=== PATIENT | male | born 1985 | race Caucasian/White ===

== ENCOUNTER 2022-08-15 09:48 | Inpatient (IN) | payer BC, OTHER ==
[~2022-08-15] VITALS: Ht 185.4 cm; Wt 63.5 kg
[2022-08-15] MEDS ORDERED: IBUP100T54 PO (10:08)
[2022-08-15] MEDS ORDERED: OMEP20CA15 PO (10:08)
[2022-08-15] MEDS ORDERED: IV NORMAL SALINE 1000 ML BAG IV ONE (10:30)
[2022-08-15] MEDS ORDERED: MORPHINE SULFATE 2 MG/1 ML DISP.SYRIN IV ONE (10:30)
[2022-08-15 10:39] LABS: HEMATOCRIT 36.3 % (36.7-47.1); MEAN CORPUSCULAR HEMOGLOBIN 27.4 uug (23.8-33.4); MEAN CORPUSCULAR VOLUME 84.4 fL (73.0-96.2); PLATELET COUNT (AUTO) 576 K/uL (152-348)
[2022-08-15] MEDS ORDERED: MORPHINE SULFATE 4 MG/1 ML DISP.SYRIN ONE (10:39)
[2022-08-15 10:47] LABS: CARBON DIOXIDE 29 mmol/L (21-32); CHLORIDE 104 mmol/L (98-107); CREATININE 0.7 mg/dL (0.6-1.3); GLUCOSE 99 mg/dL (74-106); POTASSIUM 4.3 mmol/L (3.5-5.1); UREA NITROGEN, BLOOD 7 mg/dL (7-18)
[2022-08-15 10:52] LABS: ALANINE AMINOTRANSFERASE 19 U/L (16-63); ALKALINE PHOSPHATASE 76 U/L (50-136); ASPARTATE AMINOTRANSFERASE 12 U/L (15-37); BILIRUBIN,DIRECT < 0.1 mg/dL (0.0-0.2); BILIRUBIN,TOTAL 0.1 mg/dL (0.2-1.0); LIPASE 48 U/L (73-393); TOTAL PROTEIN, SERUM 6.1 g/dL (6.4-8.2)
[2022-08-15] MEDS ORDERED: SWABABLE VALVE TRANSFER SET EA MC ONE (10:57)
[2022-08-15] MEDS ORDERED: IOHEXOL 300MG/ML 100 ML INFUS..BTL ONE (10:57)
[2022-08-15] MEDS ORDERED: IV NORMAL SALINE 250 ML IV ONE (10:58)
--- NOTE | 2022-08-15 11:00 | NUR ---
Pt seen by MD for bedside Eval. Safety measures in place. Will continue to monitor.
[2022-08-15] MEDS ORDERED: HYDROMORPHONE 1 MG/1 ML DISP.SYRIN IV ONE ×2 (11:45→13:00)
[2022-08-15 12:01] LABS: *BILIRUBIN,URIN NEGATIVE (NEGATIVE); *BLOOD, URINE NEGATIVE (NEGATIVE); *CLARITY,URINE CLEAR (CLEAR); *COLOR,URINE YELLOW (YELLOW); *KETONES,URINE NEGATIVE (NEGATIVE); *UROBILINOGEN,URINE 0.2 E.U./dl (NORMAL); LEUKOCYTE ESTERASE ,URINE NEGATIVE (NEGATIVE); NITRITE, URINE NEGATIVE (NEGATIVE); PH,URINE 6.5 (5.0-8.0); UGLUCOSE NEGATIVE (NEGATIVE)
--- NOTE | 2022-08-15 12:11 | NUR ---
Pt in stable condition. US tech is on his way according to radiology as he is on-call. Safety measures in place. Will continue to monitor.
[2022-08-15] MEDS ORDERED: PIPERACILLIN/TAZOBACTAM/D5W 50 ML IV ONE (13:09)
[2022-08-15] MEDS ORDERED: PIPERACILLIN SODIUM/TAZOBACTAM 3.375 G in IV DEXTROSE 5% 50 ML IV ONE (13:15)
--- NOTE | 2022-08-15 13:34 | NUR ---
Sent COVID to lab. Was informed by Mike that pt will be sent to 315 taken by Kay (CINDA).
[2022-08-15] MEDS ORDERED: ONDANSETRON 4 MG/2 ML VIAL IV PRN (14:00)
[2022-08-15] MEDS ORDERED: METRONIDAZOLE 500 MG/NS 100ML 500 MG in PREMIXED 1 EACH IV SCH (14:00)
[2022-08-15] MEDS ORDERED: ENOXAPARIN SODIUM 40 MG/0.4 ML DISP.SYRIN SQ SCH ×2 (14:00→14:40)
[2022-08-15] MEDS ORDERED: ACETAMINOPHEN 325 MG TABLET PO PRN (14:00)
[2022-08-15] MEDS ORDERED: REMEDY ESSENTIAL ZINC PASTE 113 GM TP PRN (14:00)
[2022-08-15] MEDS ORDERED: levoFLOXacin 500 MG/D5W 500 MG in PREMIXED 1 EACH IV SCH (14:00)
[2022-08-15] MEDS ORDERED: DICYCLOMINE HCL 20 MG TABLET ONE (14:05)
[2022-08-15] MEDS: DICYCLOMINE HCL 10 MG CAPSULE PO SCH ×2 (14:12→17:07)
--- NOTE | 2022-08-15 14:13 | NUR ---
Gave Pt Bentyl 10mg PO. Retrieved 20mg tablet from [facility] and cut pill in half using pillcutter.
--- NOTE | 2022-08-15 14:13 | NUR ---
Gave report to Kay (CONTRACT ADMINISTRATION MANAGER).
--- NOTE | 2022-08-15 14:29 | NUR ---
Pt transferred to 315 in stable condition. Pt arrived to wheelchair safely. Informed Kay about Pt's HIDA scan. All belongings are with patient.
--- NOTE | 2022-08-15 14:48 | NUR ---
36 YEAR OLD MALE RECEIVED TO ROOM 315 FOR AP ,PT IS AXOX4 ,CALL LIGHT WITH IN MD YESICA NOTIFIED FOR THE ADMISSION
[2022-08-15] MEDS: IV D5 1/2 NS 1000 ML 1,000 ML IV PRN (15:02)
[2022-08-15 15:30] VITALS: BP 115/73
[2022-08-15] MEDS ORDERED: OMEP40CA21 PO (17:19)
[2022-08-15] MEDS ORDERED: IBUP-76 PO (17:19)
[2022-08-15] MEDS: PIPERACILLIN SODIUM/TAZOBACTAM 3.375 G in IV DEXTROSE 5% 100 ML IV SCH (18:00)
[2022-08-15 20:27] VITALS: BP 98/63
[2022-08-15] MEDS: HYDROMORPHONE 1 MG/1 ML DISP.SYRIN IV PRN (21:49)
[2022-08-15] MEDS ORDERED: PIPERACILLIN SODIUM/TAZOBACTAM 3.375 G in IV DEXTROSE 5% 50 ML IV SCH (22:00)
--- NOTE | 2022-08-16 | NUR ---
PATIENT NPO ORDERED FOR HIDA SCAN.
[2022-08-16] MEDS: DICYCLOMINE HCL 10 MG CAPSULE PO SCH ×5 (00:10→17:01)
[2022-08-16] MEDS: PIPERACILLIN SODIUM/TAZOBACTAM 3.375 G in IV DEXTROSE 5% 100 ML IV SCH ×3 (03:02→18:05)
[2022-08-16 04:27] VITALS: BP 107/59
--- NOTE | 2022-08-16 04:40 | NUR ---
PATIENT PICKED UP FOR NUCLEAR SCAN.
--- NOTE | 2022-08-16 05:47 | NUR ---
PATIENT OFF THE FLOOR AT THIS TIME FOR HIDA SCAN.
[2022-08-16] MEDS: PANTOPRAZOLE SODIUM 40 MG VIAL IV SCH (08:11)
[2022-08-16 09:15] LABS: MEAN CORPUSCULAR HEMOGLOBIN 27.1 uug (23.8-33.4); MEAN CORPUSCULAR VOLUME 84.7 fL (73.0-96.2); PLATELET COUNT (AUTO) 538 K/uL (152-348)
[2022-08-16 09:49] LABS: THYROID STIMULATING HORMONE 4.592 mIU/mL (0.358-3.740)
[2022-08-16 10:01] LABS: CREATININE 0.8 mg/dL (0.6-1.3); MAGNESIUM 1.8 mg/dL (1.8-2.4); PHOSPHOROUS 4.5 mg/dL (2.5-4.9); POTASSIUM 4.1 mmol/L (3.5-5.1)
[2022-08-16 11:39] VITALS: BP 109/65
[2022-08-16] MEDS: MAGNESIUM SULFATE/D5W 100 ML IV SCH ×3 (12:45→14:42)
[2022-08-16 12:46] LABS: FERRITIN 17 ng/mL (26-388)
[2022-08-16 13:12] LABS: IRON, SERUM 17 ug/dL (50-175)
[2022-08-16] MEDS: LIPASE/PROTEASE/AMYLASE 4200 UNITS CAPSULE.DR PO SCH ×2 (13:30→16:18)
[2022-08-16 15:26] VITALS: BP 107/70
[2022-08-16] MEDS: HYOSCYAMINE SULFATE 0.125 MG TABLET PO SCH (15:51)
[2022-08-16] MEDS: IV D5 1/2 NS 1000 ML 1,000 ML IV PRN (17:02)
[2022-08-16] MEDS: ENOXAPARIN SODIUM 60 MG/0.6 ML DISP.SYRIN SQ SCH (17:04)
[2022-08-16 20:04] VITALS: BP 100/60
[2022-08-16] MEDS: HYDROMORPHONE 1 MG/1 ML DISP.SYRIN IV PRN (22:27)
[2022-08-17] MEDS: DICYCLOMINE HCL 10 MG CAPSULE PO SCH ×5 (00:03→23:02)
[2022-08-17] MEDS: PIPERACILLIN SODIUM/TAZOBACTAM 3.375 G in IV DEXTROSE 5% 100 ML IV SCH ×3 (02:56→22:17)
[2022-08-17 04:15] VITALS: BP 95/63
[2022-08-17] MEDS: ENOXAPARIN SODIUM 60 MG/0.6 ML DISP.SYRIN SQ SCH (05:40)
[2022-08-17] MEDS: HYDROMORPHONE 1 MG/1 ML DISP.SYRIN IV PRN ×3 (05:51→21:09)
[2022-08-17 06:37] LABS: HEMATOCRIT 33.2 % (36.7-47.1); MEAN CORPUSCULAR HEMOGLOBIN 26.9 uug (23.8-33.4); MEAN CORPUSCULAR VOLUME 84.4 fL (73.0-96.2); PLATELET COUNT (AUTO) 500 K/uL (152-348)
[2022-08-17 06:38] LABS: CREATININE 0.7 mg/dL (0.6-1.3); MAGNESIUM 2.1 mg/dL (1.8-2.4); PHOSPHOROUS 4.9 mg/dL (2.5-4.9); POTASSIUM 3.9 mmol/L (3.5-5.1)
[2022-08-17] MEDS: HYOSCYAMINE SULFATE 0.125 MG TABLET PO SCH ×3 (07:48→15:59)
[2022-08-17] MEDS: LIPASE/PROTEASE/AMYLASE 4200 UNITS CAPSULE.DR PO SCH ×3 (08:03→16:35)
[2022-08-17] MEDS: PANTOPRAZOLE SODIUM 40 MG VIAL IV SCH (08:14)
[2022-08-17 10:06] LABS: *IMMUNOGLOBULIN G, SERUM 830 mg/dL (603-1613); IMMUNOGLOBULIN M, SERUM 22 mg/dL (20-172)
[2022-08-17 11:02] VITALS: BP 100/70
[2022-08-17] MEDS ORDERED: PIPERACILLIN SODIUM/TAZOBACTAM 3.375 G in IV DEXTROSE 5% 50 ML IV SCH (14:00)
[2022-08-17 15:20] VITALS: BP 98/58
[2022-08-17] MEDS ORDERED: SOD FERRIC GLUC COMPLX/SUCROSE 125 MG in IV NORMAL SALINE 100 ML IV SCH (16:00)
[2022-08-17 20:43] VITALS: BP 90/60
[2022-08-17] MEDS ORDERED: ENOXAPARIN SODIUM 60 MG/0.6 ML DISP.SYRIN SQ SCH (21:00)
--- NOTE | 2022-08-18 01:53 | NUR ---
Sleeping, appears comfortable no c/o pain noted
[2022-08-18 04:00] VITALS: BP 98/62
[2022-08-18] MEDS: DICYCLOMINE HCL 10 MG CAPSULE PO SCH (05:01)
--- NOTE | 2022-08-18 05:32 | NUR ---
pt have pet scan as out pt in [facility] ,pt said he can not reschedule the appointment ,talk to the md and housing case manager all the contraindication discuss with the pt if he leave [facility] ,pt said he needs to do the pet scan ,pt left the hospital in proper clothing with his family ,pt is axox4 bhargavi araiza md and charge nurse and nursing circus train supervisor notified
[2022-08-18] MEDS ORDERED: PROTEIN SUPPLEMENT (PROSTAT) 30 ML LIQUID PO SCH (08:00)
[2022-08-18 09:07] LABS: A/G RATIO 0.8 (0.7-1.7); ALBUMIN 2.2 g/dL (2.9-4.4); ALPHA-1-GLOBULIN 0.4 g/dL (0.0-0.4); ALPHA-2-GLOBULIN 0.7 g/dL (0.4-1.0); GAMMA GLOBULIN 0.6 g/dL (0.4-1.8); GLOBULIN, TOTAL 2.7 g/dL (2.2-3.9); M-SPIKE Not Observed g/dL (Not Observed)
[2022-08-19] MEDS ORDERED: DICY20TA2 PO (11:41)
[2022-08-19] MEDS ORDERED: APIX5TAB4 PO (11:41)
[2022-08-19] MEDS ORDERED: APIX5TAB PO (11:41)
== END 2022-08-18 05:37 | disposition left against medical advice (07) | DRG 372 ==
LOC: ER 10:00 → MEDSURG3 14:10
PROVIDERS: ADMIT Nurse Practitioner Family; ATTEND Nurse Practitioner Family
DX: A04.9 Bacterial intestinal infection, unspecified (principal); C16.9 Malignant neoplasm of stomach, unspecified; E44.0 Moderate protein-calorie malnutrition; Z68.1 Body mass index [BMI] 19.9 or less, adult; I82.622 Acute embolism and thrombosis of deep veins of left upper extremity; C77.9 Secondary and unspecified malignant neoplasm of lymph node, unspecified; R18.8 Other ascites; J90 Pleural effusion, not elsewhere classified; J98.11 Atelectasis; Z90.3 Acquired absence of stomach [part of]; D75.839 Thrombocytosis, unspecified; E03.8 Other specified hypothyroidism; Z53.29 Procedure and treatment not carried out because of patient's decision for other reasons; E88.09 Other disorders of plasma-protein metabolism, not elsewhere classified; D50.9 Iron deficiency anemia, unspecified; E27.9 Disorder of adrenal gland, unspecified; Z92.21 Personal history of antineoplastic chemotherapy; Z85.028 Personal history of other malignant neoplasm of stomach; Z20.822 Contact with and (suspected) exposure to COVID-19
CPT/HCPCS: 36415; 71250; 78445; 82378; 82746; 82784; 83550; 83690; 83735; 84100; 84155; 84165; 84443; 85025; 86334; 87040; A4663; A9537; C9113; G0378; J1170; J1650; J2270; J2405; J2543; J2916; J3475; J7040; Q9967

== ENCOUNTER 2022-08-18 22:40 | Inpatient (IN) | payer BC ==
[~2022-08-18] VITALS: Ht 185.4 cm; Wt 65.0 kg
[~2022-08-18 22:40] MED LIST: IBUP-76 PO; OMEP40CA21 PO
--- NOTE | 2022-08-18 23:00 | NUR ---
Patient walked into ER c/o abdominal pain and poor appetite due to stomach CA.
--- NOTE | 2022-08-18 23:05 | NUR ---
Dr. Lizama at bedside for MSE.
[2022-08-18 23:34] LABS: HEMATOCRIT 36.2 % (36.7-47.1); MEAN CORPUSCULAR HEMOGLOBIN 27.3 uug (23.8-33.4); MEAN CORPUSCULAR VOLUME 84.2 fL (73.0-96.2); PLATELET COUNT (AUTO) 557 K/uL (152-348)
[2022-08-18 23:48] LABS: BILIRUBIN,DIRECT 0.1 mg/dL (0.0-0.2); BILIRUBIN,TOTAL 0.2 mg/dL (0.2-1.0); CREATININE 0.7 mg/dL (0.6-1.3); POTASSIUM 4.4 mmol/L (3.5-5.1); TOTAL PROTEIN, SERUM 6.2 g/dL (6.4-8.2)
--- NOTE | 2022-08-19 00:03 | NUR ---
Epic panel call placed, spoke to Christina stated she will get a hold of MICROSTRATEGY DEVELOPER Araseli Friend for admitting.
[2022-08-19] MEDS ORDERED: KETOROLAC TROMETHAMINE 15 MG INJ ONE (00:06)
--- NOTE | 2022-08-19 00:08 | NUR ---
Dr. Lizama on panel call with Bridgette Trevizo. Patient accepted for admission to [facility] unit, Dx DVT.
[2022-08-19] MEDS ORDERED: KETOROLAC TROMETHAMINE 15 MG INJ IVP ONE ×2 (00:15→02:45)
[2022-08-19] MEDS ORDERED: IV NS 1000 ML 1,000 ML IV PRN (00:30)
[2022-08-19] MEDS ORDERED: REMEDY ESSENTIAL ZINC PASTE 113 GM TP PRN (00:30)
[2022-08-19] MEDS ORDERED: ACETAMINOPHEN 325 MG TABLET PO PRN (00:30)
[2022-08-19] MEDS ORDERED: ONDANSETRON 4 MG/2 ML VIAL IV PRN (00:30)
[2022-08-19] MEDS ORDERED: MAGNESIUM HYDROXIDE 30 ML LIQUID UDC PO PRN (00:30)
--- NOTE | 2022-08-19 01:45 | NUR ---
Pt. admitted to [facility] unit Room 318, under care of Araseli Trevizo. Report given to PARISA Nguyen. Belongings List completed.
[2022-08-19 02:00] VITALS: BP 126/69
[2022-08-19] MEDS ORDERED: ENOXAPARIN SODIUM 60 MG/0.6 ML DISP.SYRIN SQ SCH (02:00)
[2022-08-19 04:00] VITALS: BP 101/54
[2022-08-19] MEDS ORDERED: PANTOPRAZOLE SODIUM 40 MG TABLET.DR PO SCH (07:00)
--- NOTE | 2022-08-19 07:30 | NUR ---
REPORT GIVEN TO PARISA CASEY
[2022-08-19 08:00] VITALS: BP 101/63
[2022-08-19] MEDS ORDERED: Medication Not On Formulary EA (Omeprazole 40 MG) PO SCH (09:00)
--- NOTE | 2022-08-19 10:00 | NUR ---
Received patient lying in bed awake, alert and oriented, with ongoing IVF NS 1L @ 90cc/hr infusing well at right AC g. 20 intact. Not in distress no complaint, vital signs stable. Medications given and recorded Seen and examined by Dr. Torres with order for discharge and carried out Prepared discharge, given and instructed to patient. signed all forms for discharge. Answered all questions, verbalize understanding Removed IV catheter clean and intact Needs attended
[2022-08-19] MEDS ORDERED: ENOXAPARIN SODIUM 80 MG/0.8 ML DISP.SYRIN SQ SCH (11:00)
[2022-08-19] MEDS ORDERED: DICY20TA2 PO (11:41)
[2022-08-19] MEDS ORDERED: APIX5TAB PO (11:41)
[2022-08-19] MEDS ORDERED: APIX5TAB4 PO (11:41)
[2022-08-19 11:53] VITALS: BP 113/72
[2022-08-19] MEDS ORDERED: LIPASE/PROTEASE/AMYLASE 4200 UNITS CAPSULE.DR PO SCH (12:00)
[2022-08-19] MEDS ORDERED: DICYCLOMINE HCL 20 MG TABLET PO SCH (13:00)
--- NOTE | 2022-08-19 15:10 | NUR ---
Assisted patient for discharge ambulatory. Stable at the time of discharge properly Discharge at 1510
== END 2022-08-19 15:10 | disposition home or self-care (01) | DRG 300 ==
LOC: ER 22:43 → MEDSURG3 08-19 00:10
PROVIDERS: ADMIT Nurse Practitioner Acute Care; ATTEND Internal Medicine
DX: I82.622 Acute embolism and thrombosis of deep veins of left upper extremity (principal); C77.1 Secondary and unspecified malignant neoplasm of intrathoracic lymph nodes; Z85.028 Personal history of other malignant neoplasm of stomach; Z90.3 Acquired absence of stomach [part of]; R10.11 Right upper quadrant pain
CPT/HCPCS: 36415; 85025; 85610; 85730; A4663; G0378; J1650; J1885; J7040

== ENCOUNTER 2022-10-18 14:47 | Inpatient (IN) | payer BC, MEDICAID ==
[~2022-10-18] VITALS: Ht 185.4 cm; Wt 61.7 kg
[~2022-10-18 14:47] MED LIST changes: +APIX5TAB PO; +APIX5TAB4 PO; +DICY20TA2 PO; -IBUP-76 PO
[2022-10-18 16:26] LABS: BASOPHILS % (AUTO) 0.4 % (0.0-2.0); EOSINOPHILS % (AUTO) 0.1 % (0.0-7.0); HEMATOCRIT 38.8 % (36.7-47.1); HEMOGLOBIN 12.1 g/dL (12.5-16.3); LYMPHOCYTES % (AUTO) 17.1 % (20.5-51.5); MEAN CORPUSCULAR HEMOGLOBIN 24.3 uug (23.8-33.4); MEAN CORPUSCULAR HGB CONC 31 g/dL (32.5-36.3); MONOCYTES # (AUTO) 0.4 K/uL (0.1-1.30); MONOCYTES % (AUTO) 6.4 % (0.0-11.0); NEUTROPHILS # (AUTO) 4.6 K/uL (1.8-8.9); PLATELET COUNT (AUTO) 660 K/uL (152-348); RED BLOOD CELL COUNT(AUTO) 4.98 MIL/uL (4.06-5.63); RED CELL DISTRIBUTION WIDTH 18.9 % (12.1-16.2)
[2022-10-18 16:37] LABS: DIFFERENTIAL COMMENT 1
[2022-10-18 16:39] LABS: CALCIUM 7.9 mg/dL (8.5-10.1); CARBON DIOXIDE 27 mmol/L (21-32); CHLORIDE 100 mmol/L (98-107); GLUCOSE 98 mg/dL (74-106); SODIUM SERUM 133 mmol/L (136-145); UREA NITROGEN, BLOOD 13 mg/dL (7-18)
[2022-10-18] MEDS ORDERED: IV NORMAL SALINE 250 ML IV ONE (16:52)
[2022-10-18] MEDS ORDERED: IOHEXOL 350 100 ML INFUS..BTL ONE (16:52)
[2022-10-18] MEDS ORDERED: SWABABLE VALVE TRANSFER SET EA MC ONE (16:52)
[2022-10-18 16:53] LABS: ALANINE AMINOTRANSFERASE 9 U/L (16-63); ALBUMIN 1.8 g/dL (3.4-5.0); ALKALINE PHOSPHATASE 76 U/L (50-136); ASPARTATE AMINOTRANSFERASE 15 U/L (15-37); BILIRUBIN,DIRECT < 0.1 mg/dL (0.0-0.2); BILIRUBIN,TOTAL 0.1 mg/dL (0.2-1.0); NT-PRO BNP 54 pg/mL (0-125)
[2022-10-18] MEDS ORDERED: IV NS 1000 ML 1,000 ML IV ONE (17:45)
[2022-10-18] MEDS ORDERED: ACETAMINOPHEN 325 MG TABLET PO PRN (21:00)
[2022-10-18] MEDS ORDERED: ALBUTEROL SULFATE 2.5 MG/3 ML NEBU NEB PRN (21:00)
[2022-10-18] MEDS ORDERED: HYDROCODONE/APAP 5-325MG TABLET PO PRN (21:00)
[2022-10-18] MEDS ORDERED: REMEDY ESSENTIAL ZINC PASTE 113 GM TP PRN (21:00)
[2022-10-18] MEDS ORDERED: ONDANSETRON 4 MG/2 ML VIAL IV PRN (21:00)
[2022-10-18] MEDS ORDERED: IPRATROPIUM BROMIDE 0.5 MG/2.5 ML NEBU NEB PRN (21:00)
[2022-10-18] MEDS: MORPHINE SULFATE 2 MG/1 ML DISP.SYRIN IV PRN (21:53)
[2022-10-18 22:04] VITALS: BP 105/79; TEMP 97.6; O2SAT 97
[2022-10-19] VITALS: BP 108/81; TEMP 97.7; O2SAT 97
[2022-10-19 04:00] VITALS: BP 104/7; TEMP 97.6; O2SAT 100
[2022-10-19] MEDS: PANTOPRAZOLE SODIUM 40 MG TABLET.DR PO SCH (06:00)
[2022-10-19 07:32] LABS: BASOPHILS % (AUTO) 0.4 % (0.0-2.0); EOSINOPHILS % (AUTO) 0.3 % (0.0-7.0); HEMATOCRIT 33.1 % (36.7-47.1); HEMOGLOBIN 10.6 g/dL (12.5-16.3); LYMPHOCYTES # (AUTO) 1.2 K/uL (0.8-4.8); MEAN CORPUSCULAR HEMOGLOBIN 24.8 uug (23.8-33.4); MEAN CORPUSCULAR HGB CONC 32 g/dL (32.5-36.3); MEAN CORPUSCULAR VOLUME 77.5 fL (73.0-96.2); MONOCYTES # (AUTO) 0.4 K/uL (0.1-1.30); NEUTROPHILS # (AUTO) 3.8 K/uL (1.8-8.9); NEUTROPHILS % (AUTO) 70.3 % (38.5-71.5); PLATELET COUNT (AUTO) 542 K/uL (152-348); RED BLOOD CELL COUNT(AUTO) 4.27 MIL/uL (4.06-5.63); RED CELL DISTRIBUTION WIDTH 18.5 % (12.1-16.2); WHITE BLOOD COUNT (AUTO) 5.4 K/uL (3.6-10.2)
[2022-10-19 07:42] LABS: *BILIRUBIN,URIN NEGATIVE (NEGATIVE); *BLOOD, URINE NEGATIVE (NEGATIVE); *CLARITY,URINE CLEAR (CLEAR); *COLOR,URINE YELLOW (YELLOW); *KETONES,URINE NEGATIVE (NEGATIVE); *PROTEIN,URINE NEGATIVE (NEGATIVE); *UROBILINOGEN,URINE 0.2 E.U./dl (NORMAL); LEUKOCYTE ESTERASE ,URINE NEGATIVE (NEGATIVE); NITRITE, URINE NEGATIVE (NEGATIVE); UGLUCOSE NEGATIVE (NEGATIVE)
[2022-10-19 07:47] LABS: CALCIUM 7.6 mg/dL (8.5-10.1); CREATININE 0.7 mg/dL (0.6-1.3); PHOSPHOROUS 3.8 mg/dL (2.5-4.9); POTASSIUM 4.6 mmol/L (3.5-5.1)
[2022-10-19 07:49] LABS: DIFFERENTIAL COMMENT 1
[2022-10-19 11:30] VITALS: BP 109/75; TEMP 97.5; O2SAT 97
[2022-10-19] MEDS: HYDROCODONE/APAP 10-325 MG TABLET PO PRN ×2 (12:40→19:26)
[2022-10-19 16:30] VITALS: BP 109/79; TEMP 97.4; O2SAT 97
[2022-10-19 20:00] VITALS: BP 106/72; TEMP 97.5; O2SAT 94
[2022-10-20] VITALS: BP 113/83; TEMP 97.6
[2022-10-20] MEDS: MORPHINE SULFATE 2 MG/1 ML DISP.SYRIN IV PRN ×4 (00:28→19:04)
[2022-10-20] MEDS: HYDROCODONE/APAP 10-325 MG TABLET PO PRN (04:45)
[2022-10-20 05:00] VITALS: BP 118/65; TEMP 97.5; O2SAT 95
[2022-10-20] MEDS: PANTOPRAZOLE SODIUM 40 MG TABLET.DR PO SCH (06:17)
[2022-10-20 07:38] LABS: BASOPHILS % (AUTO) 0.5 % (0.0-2.0); EOSINOPHILS % (AUTO) 0.7 % (0.0-7.0); HEMATOCRIT 35.5 % (36.7-47.1); HEMOGLOBIN 11.4 g/dL (12.5-16.3); LYMPHOCYTES # (AUTO) 1.4 K/uL (0.8-4.8); LYMPHOCYTES % (AUTO) 27.1 % (20.5-51.5); MEAN CORPUSCULAR HEMOGLOBIN 24.9 uug (23.8-33.4); MEAN CORPUSCULAR HGB CONC 32 g/dL (32.5-36.3); MEAN CORPUSCULAR VOLUME 77.8 fL (73.0-96.2); MONOCYTES # (AUTO) 0.4 K/uL (0.1-1.30); MONOCYTES % (AUTO) 8.2 % (0.0-11.0); NEUTROPHILS # (AUTO) 3.3 K/uL (1.8-8.9); NEUTROPHILS % (AUTO) 63.5 % (38.5-71.5); PLATELET COUNT (AUTO) 592 K/uL (152-348); RED BLOOD CELL COUNT(AUTO) 4.56 MIL/uL (4.06-5.63); RED CELL DISTRIBUTION WIDTH 18.6 % (12.1-16.2); WHITE BLOOD COUNT (AUTO) 5.2 K/uL (3.6-10.2)
[2022-10-20 07:42] LABS: DIFFERENTIAL COMMENT 1
[2022-10-20 07:54] LABS: IRON, SERUM 15 ug/dL (50-175)
[2022-10-20 08:18] LABS: ALANINE AMINOTRANSFERASE < 6 U/L (16-63); ALBUMIN 1.6 g/dL (3.4-5.0); ALKALINE PHOSPHATASE 73 U/L (50-136); ASPARTATE AMINOTRANSFERASE 15 U/L (15-37); BILIRUBIN,TOTAL 0.1 mg/dL (0.2-1.0); CALCIUM 7.9 mg/dL (8.5-10.1); CARBON DIOXIDE 27 mmol/L (21-32); CHLORIDE 101 mmol/L (98-107); CREATININE 0.8 mg/dL (0.6-1.3); GLUCOSE 81 mg/dL (74-106); MAGNESIUM 2.1 mg/dL (1.8-2.4); PHOSPHOROUS 4.5 mg/dL (2.5-4.9); POTASSIUM 5.1 mmol/L (3.5-5.1); SODIUM SERUM 134 mmol/L (136-145); TOTAL PROTEIN, SERUM 5.9 g/dL (6.4-8.2); UREA NITROGEN, BLOOD 10 mg/dL (7-18)
[2022-10-20] MEDS: CEFTRIAXONE 1 G in IV DEXTROSE 5% 50 ML IV SCH (09:23)
[2022-10-20 11:32] VITALS: BP 113/80; TEMP 97.6; O2SAT 95
[2022-10-20] MEDS: AZITHROMYCIN IV 500 MG in IV DEXTROSE 5% 250 ML IV SCH (12:49)
[2022-10-20] MEDS ORDERED: METOCLOPRAMIDE HCL 10 MG/2 ML VIAL IV PRN (13:45)
[2022-10-20 16:12] VITALS: BP 100/68; TEMP 97.6; O2SAT 94
[2022-10-20] MEDS: GLUCERNA SHAKE 237 ML CAN PO SCH (17:00)
[2022-10-20] MEDS: ONDANSETRON 4 MG/2 ML VIAL IV PRN (19:05)
[2022-10-20 20:00] VITALS: BP 104/71; TEMP 98.6; O2SAT 97
[2022-10-21 04:00] VITALS: BP 102/69; TEMP 98; O2SAT 97
[2022-10-21] MEDS: PANTOPRAZOLE SODIUM 40 MG TABLET.DR PO SCH (06:03)
[2022-10-21] MEDS: CEFTRIAXONE 1 G in IV DEXTROSE 5% 50 ML IV SCH (08:35)
[2022-10-21] MEDS: GLUCERNA SHAKE 237 ML CAN PO SCH ×2 (08:36→17:00)
[2022-10-21] MEDS: PROTEIN SUPPLEMENT (PROSTAT) 30 ML LIQUID PO SCH (08:36)
[2022-10-21] MEDS: AZITHROMYCIN IV 500 MG in IV DEXTROSE 5% 250 ML IV SCH (09:57)
[2022-10-21] MEDS: ONDANSETRON 4 MG/2 ML VIAL IV PRN (10:03)
[2022-10-21 11:54] VITALS: BP 105/70; TEMP 97.8; O2SAT 96
[2022-10-21] MEDS: HYDROCODONE/APAP 10-325 MG TABLET PO PRN ×2 (15:54→21:27)
[2022-10-21] MEDS: FERROUS SULFATE 325 MG TABEC PO SCH (16:05)
[2022-10-21 16:08] VITALS: BP 109/73; TEMP 97.8; O2SAT 95
[2022-10-21 20:00] VITALS: BP 111/76; TEMP 98; O2SAT 95
[2022-10-22] MEDS: MORPHINE SULFATE 2 MG/1 ML DISP.SYRIN IV PRN (00:45)
[2022-10-22] MEDS: ONDANSETRON 4 MG/2 ML VIAL IV PRN ×3 (00:45→20:21)
[2022-10-22] MEDS: HYDROCODONE/APAP 10-325 MG TABLET PO PRN ×2 (03:11→19:41)
[2022-10-22] MEDS: MAGNESIUM HYDROXIDE 30 ML LIQUID UDC PO PRN (03:15)
[2022-10-22] MEDS: PANTOPRAZOLE SODIUM 40 MG TABLET.DR PO SCH (06:05)
[2022-10-22 06:26] LABS: BASOPHILS % (AUTO) 0.4 % (0.0-2.0); EOSINOPHILS % (AUTO) 0.6 % (0.0-7.0); HEMATOCRIT 34.5 % (36.7-47.1); LYMPHOCYTES # (AUTO) 1.4 K/uL (0.8-4.8); LYMPHOCYTES % (AUTO) 25.6 % (20.5-51.5); MEAN CORPUSCULAR HEMOGLOBIN 24.8 uug (23.8-33.4); MEAN CORPUSCULAR HGB CONC 32 g/dL (32.5-36.3); MEAN CORPUSCULAR VOLUME 77.4 fL (73.0-96.2); MONOCYTES # (AUTO) 0.6 K/uL (0.1-1.30); MONOCYTES % (AUTO) 10.1 % (0.0-11.0); NEUTROPHILS # (AUTO) 3.5 K/uL (1.8-8.9); NEUTROPHILS % (AUTO) 63.3 % (38.5-71.5); PLATELET COUNT (AUTO) 562 K/uL (152-348); RED BLOOD CELL COUNT(AUTO) 4.45 MIL/uL (4.06-5.63); RED CELL DISTRIBUTION WIDTH 19.4 % (12.1-16.2); WHITE BLOOD COUNT (AUTO) 5.5 K/uL (3.6-10.2)
[2022-10-22 06:27] VITALS: BP 103/73; TEMP 97.7; O2SAT 95
[2022-10-22 06:36] LABS: DIFFERENTIAL COMMENT 1
[2022-10-22 06:53] LABS: CALCIUM 7.2 mg/dL (8.5-10.1); CREATININE 0.8 mg/dL (0.6-1.3); PHOSPHOROUS 4.2 mg/dL (2.5-4.9); POTASSIUM 4.8 mmol/L (3.5-5.1)
[2022-10-22] MEDS: CEFTRIAXONE 1 G in IV DEXTROSE 5% 50 ML IV SCH (07:47)
[2022-10-22] MEDS: FERROUS SULFATE 325 MG TABEC PO SCH (08:02)
[2022-10-22] MEDS: GLUCERNA SHAKE 237 ML CAN PO SCH ×2 (08:03→16:15)
[2022-10-22] MEDS: APIXABAN 2.5 MG TABLET PO SCH ×2 (08:03→20:20)
[2022-10-22] MEDS: PROTEIN SUPPLEMENT (PROSTAT) 30 ML LIQUID PO SCH (08:04)
[2022-10-22] MEDS: AZITHROMYCIN IV 500 MG in IV DEXTROSE 5% 250 ML IV SCH (08:05)
[2022-10-22 08:14] LABS: THYROID STIMULATING HORMONE 17.97 mIU/mL (0.358-3.740)
[2022-10-22 11:28] VITALS: BP 110/79; TEMP 97.8; O2SAT 94
[2022-10-22 15:53] VITALS: BP 104/76; TEMP 97.9; O2SAT 95
[2022-10-22 20:00] VITALS: BP 104/76; TEMP 98.3; O2SAT 95
[2022-10-23 04:13] VITALS: BP 95/62; TEMP 97.7; O2SAT 95
[2022-10-23] MEDS: LEVOTHYROXINE SODIUM 25 MCG TABLET PO SCH (06:09)
[2022-10-23] MEDS: PANTOPRAZOLE SODIUM 40 MG TABLET.DR PO SCH (06:09)
[2022-10-23] MEDS: CEFTRIAXONE 1 G in IV DEXTROSE 5% 50 ML IV SCH (07:39)
[2022-10-23] MEDS: GLUCERNA SHAKE 237 ML CAN PO SCH ×3 (07:46→16:23)
[2022-10-23] MEDS: PROTEIN SUPPLEMENT (PROSTAT) 30 ML LIQUID PO SCH (07:47)
[2022-10-23] MEDS: FERROUS SULFATE 325 MG TABEC PO SCH (08:05)
[2022-10-23] MEDS: APIXABAN 2.5 MG TABLET PO SCH ×2 (08:05→20:22)
[2022-10-23] MEDS: AZITHROMYCIN 250 MG TABLET PO SCH (08:07)
[2022-10-23 12:00] VITALS: BP 100/71; TEMP 97.7; O2SAT 96
[2022-10-23 15:56] VITALS: BP 112/80; TEMP 97.9; O2SAT 96
[2022-10-23 20:00] VITALS: BP 101/66; TEMP 98.2; O2SAT 92
[2022-10-23] MEDS: MORPHINE SULFATE 2 MG/1 ML DISP.SYRIN IV PRN (20:14)
[2022-10-23] MEDS: ONDANSETRON 4 MG/2 ML VIAL IV PRN (20:14)
[2022-10-24 04:00] VITALS: BP 105/71; TEMP 97.7; O2SAT 96
[2022-10-24] MEDS: PANTOPRAZOLE SODIUM 40 MG TABLET.DR PO SCH (06:33)
[2022-10-24] MEDS: LEVOTHYROXINE SODIUM 25 MCG TABLET PO SCH (06:33)
[2022-10-24] MEDS: PROTEIN SUPPLEMENT (PROSTAT) 30 ML LIQUID PO SCH (07:12)
[2022-10-24] MEDS: GLUCERNA SHAKE 237 ML CAN PO SCH ×2 (07:12→16:28)
[2022-10-24] MEDS: CEFTRIAXONE 1 G in IV DEXTROSE 5% 50 ML IV SCH (07:34)
[2022-10-24] MEDS: FERROUS SULFATE 325 MG TABEC PO SCH (08:06)
[2022-10-24] MEDS: AZITHROMYCIN 250 MG TABLET PO SCH (08:06)
[2022-10-24] MEDS: APIXABAN 2.5 MG TABLET PO SCH ×2 (08:07→20:27)
[2022-10-24 11:39] VITALS: BP 95/66; TEMP 97.5; O2SAT 94
[2022-10-24] MEDS: MAGNESIUM HYDROXIDE 30 ML LIQUID UDC PO PRN (14:49)
[2022-10-24 16:11] VITALS: BP 105/72; TEMP 98.9; O2SAT 98
[2022-10-24] MEDS: ONDANSETRON 4 MG/2 ML VIAL IV PRN (16:47)
[2022-10-24] MEDS: HYDROCODONE/APAP 10-325 MG TABLET PO PRN (16:47)
[2022-10-24 20:00] VITALS: BP 105/76; TEMP 98.1; O2SAT 96
[2022-10-24] MEDS: MORPHINE SULFATE 2 MG/1 ML DISP.SYRIN IV PRN (21:00)
[2022-10-25 06:09] VITALS: BP 109/51; TEMP 97.7; O2SAT 96
[2022-10-25] MEDS: LEVOTHYROXINE SODIUM 25 MCG TABLET PO SCH (06:24)
[2022-10-25] MEDS: PANTOPRAZOLE SODIUM 40 MG TABLET.DR PO SCH (06:24)
[2022-10-25] MEDS: GLUCERNA SHAKE 237 ML CAN PO SCH ×2 (08:00→16:04)
[2022-10-25] MEDS: PROTEIN SUPPLEMENT (PROSTAT) 30 ML LIQUID PO SCH (08:00)
[2022-10-25] MEDS: FERROUS SULFATE 325 MG TABEC PO SCH (08:45)
[2022-10-25] MEDS: APIXABAN 2.5 MG TABLET PO SCH (08:46)
[2022-10-25 11:45] VITALS: BP 107/69; TEMP 98; O2SAT 98
[2022-10-25 14:28] LABS: BASOPHILS % (AUTO) 0.6 % (0.0-2.0); DIFFERENTIAL COMMENT 0; EOSINOPHILS % (AUTO) 0.4 % (0.0-7.0); HEMOGLOBIN 12.1 g/dL (12.5-16.3); LYMPHOCYTES # (AUTO) 1.1 K/uL (0.8-4.8); LYMPHOCYTES % (AUTO) 15.3 % (20.5-51.5); MEAN CORPUSCULAR HEMOGLOBIN 24.3 uug (23.8-33.4); MEAN CORPUSCULAR HGB CONC 31 g/dL (32.5-36.3); MEAN CORPUSCULAR VOLUME 78.1 fL (73.0-96.2); MONOCYTES # (AUTO) 0.7 K/uL (0.1-1.30); MONOCYTES % (AUTO) 9.3 % (0.0-11.0); NEUTROPHILS # (AUTO) 5.4 K/uL (1.8-8.9); NEUTROPHILS % (AUTO) 74.4 % (38.5-71.5); PLATELET COUNT (AUTO) 554 K/uL (152-348); RED CELL DISTRIBUTION WIDTH 19.2 % (12.1-16.2); WHITE BLOOD COUNT (AUTO) 7.2 K/uL (3.6-10.2)
[2022-10-25 14:53] LABS: ALANINE AMINOTRANSFERASE 8 U/L (16-63); ALKALINE PHOSPHATASE 74 U/L (50-136); ASPARTATE AMINOTRANSFERASE 17 U/L (15-37); CALCIUM 7.5 mg/dL (8.5-10.1); CARBON DIOXIDE 25 mmol/L (21-32); CHLORIDE 99 mmol/L (98-107); CREATININE 0.8 mg/dL (0.6-1.3); GLUCOSE 93 mg/dL (74-106); POTASSIUM 5.7 mmol/L (3.5-5.1); SODIUM SERUM 131 mmol/L (136-145); TOTAL PROTEIN, SERUM 5.7 g/dL (6.4-8.2); UREA NITROGEN, BLOOD 13 mg/dL (7-18)
[2022-10-25] MEDS ORDERED: HYDR-3972 PO (15:01)
[2022-10-25] MEDS ORDERED: FERR325T28 PO (15:01)
[2022-10-25] MEDS ORDERED: APIX2.5T PO (15:01)
[2022-10-25] MEDS ORDERED: LEVO25TA9 PO (15:01)
[2022-10-25] MEDS ORDERED: ONDA4TAB5 PO (15:01)
[2022-10-25 15:12] LABS: BILIRUBIN,TOTAL < 0.1 mg/dL (0.2-1.0)
[2022-10-25 15:19] LABS: ALBUMIN 1.5 g/dL (3.4-5.0)
[2022-10-25 16:00] VITALS: BP 99/70; TEMP 97.7; O2SAT 95
== END 2022-10-25 17:30 | disposition home or self-care (01) | DRG 137 ==
LOC: ER 14:47 → TELE3 21:55 → MEDSURG3 10-20 10:19
PROVIDERS: ATTEND Internal Medicine
PROC: 0W9G3ZX Drainage of Peritoneal Cavity, Percutaneous Approach, Diagnostic (ICD-10-PCS; principal; 2022-10-20)
DX: J69.0 Pneumonitis due to inhalation of food and vomit (principal); E43 Unspecified severe protein-calorie malnutrition; C79.72 Secondary malignant neoplasm of left adrenal gland; C16.9 Malignant neoplasm of stomach, unspecified; A04.9 Bacterial intestinal infection, unspecified; R18.8 Other ascites; E88.09 Other disorders of plasma-protein metabolism, not elsewhere classified; E87.1 Hypo-osmolality and hyponatremia; C78.6 Secondary malignant neoplasm of retroperitoneum and peritoneum; J90 Pleural effusion, not elsewhere classified; R06.02 Shortness of breath; Z90.3 Acquired absence of stomach [part of]; K59.00 Constipation, unspecified; R62.7 Adult failure to thrive; Z79.899 Other long term (current) drug therapy; Z79.01 Long term (current) use of anticoagulants; Z86.718 Personal history of other venous thrombosis and embolism; E03.9 Hypothyroidism, unspecified; D75.839 Thrombocytosis, unspecified; D50.9 Iron deficiency anemia, unspecified
CPT/HCPCS: 36415; 71045; 71275; 82378; 82747; 83550; 83605; 83690; 83735; 84100; 84443; 84484; 85014; 85025; 85730; 87040; 93005; A4663; G0378; J0456; J0696; J2270; J2405; J2765; J7040; J7050; Q0144; Q9967

== ENCOUNTER 2022-11-09 16:25 | Inpatient (IN) | payer BC, OTHER ==
[~2022-11-09] VITALS: Ht 185.4 cm; Wt 66.2 kg
[~2022-11-09 16:25] MED LIST changes: +APIX2.5T PO; -APIX5TAB PO; -APIX5TAB4 PO; +FERR325T28 PO; +HYDR-3972 PO; +LEVO25TA9 PO; +ONDA4TAB5 PO
[2022-11-09] MEDS ORDERED: ONDANSETRON 4 MG/2 ML VIAL ONE (17:11)
[2022-11-09] MEDS ORDERED: IV NORMAL SALINE 1000 ML BAG IV ONE (17:15)
[2022-11-09] MEDS ORDERED: ONDANSETRON 4 MG/2 ML VIAL IV ONE (17:15)
[2022-11-09] MEDS ORDERED: MORPHINE SULFATE 4 MG/1 ML DISP.SYRIN IV ONE (17:15)
[2022-11-09] MEDS ORDERED: MORPHINE SULFATE 4 MG/1 ML DISP.SYRIN ONE (17:21)
[2022-11-09 17:54] LABS: BASOPHILS % (AUTO) 0.2 % (0.0-2.0); EOSINOPHILS % (AUTO) 0.1 % (0.0-7.0); HEMATOCRIT 35.4 % (36.7-47.1); HEMOGLOBIN 10.8 g/dL (12.5-16.3); LYMPHOCYTES # (AUTO) 0.5 K/uL (0.8-4.8); LYMPHOCYTES % (AUTO) 8.2 % (20.5-51.5); MEAN CORPUSCULAR HEMOGLOBIN 23.8 uug (23.8-33.4); MEAN CORPUSCULAR HGB CONC 31 g/dL (32.5-36.3); MEAN CORPUSCULAR VOLUME 77.9 fL (73.0-96.2); MONOCYTES # (AUTO) 0.1 K/uL (0.1-1.30); MONOCYTES % (AUTO) 2.2 % (0.0-11.0); NEUTROPHILS # (AUTO) 5.5 K/uL (1.8-8.9); NEUTROPHILS % (AUTO) 89.3 % (38.5-71.5); PLATELET COUNT (AUTO) 509 K/uL (152-348); RED BLOOD CELL COUNT(AUTO) 4.54 MIL/uL (4.06-5.63); RED CELL DISTRIBUTION WIDTH 20.9 % (12.1-16.2); WHITE BLOOD COUNT (AUTO) 6.1 K/uL (3.6-10.2)
[2022-11-09 17:57] LABS: DIFFERENTIAL COMMENT 1
[2022-11-09 18:03] LABS: CALCIUM 7.5 mg/dL (8.5-10.1); CARBON DIOXIDE 22 mmol/L (21-32); CHLORIDE 100 mmol/L (98-107); CREATININE 0.8 mg/dL (0.6-1.3); GLUCOSE 113 mg/dL (74-106); SODIUM SERUM 130 mmol/L (136-145); UREA NITROGEN, BLOOD 15 mg/dL (7-18)
[2022-11-09 18:11] LABS: ALANINE AMINOTRANSFERASE 7 U/L (16-63); ALKALINE PHOSPHATASE 79 U/L (50-136); ASPARTATE AMINOTRANSFERASE 15 U/L (15-37); BILIRUBIN,DIRECT < 0.1 mg/dL (0.0-0.2); BILIRUBIN,TOTAL 0.1 mg/dL (0.2-1.0); LIPASE 25 U/L (73-393); TOTAL PROTEIN, SERUM 5.2 g/dL (6.4-8.2)
[2022-11-09 18:14] LABS: ALBUMIN 1.3 g/dL (3.4-5.0)
[2022-11-09] MEDS ORDERED: CEFTRIAXONE 1 G in IV DEXTROSE 5% 50 ML IV ONE (19:00)
[2022-11-09] MEDS ORDERED: AZITHROMYCIN IV 500 MG in IV DEXTROSE 5% 250 ML IV ONE (19:00)
[2022-11-09] MEDS ORDERED: CEFTRIAXONE /D5W 50ML IVPB **ER PYXIS IV ONE (19:14)
[2022-11-09] MEDS ORDERED: AZITHROMYCIN 500MG/ D5W 250ML IVPB **ER PYXIS ONLY IV ONE (19:15)
[2022-11-09 22:04] VITALS: BP 101/72; TEMP 97.6; O2SAT 95
[2022-11-09] MEDS ORDERED: ACETAMINOPHEN 325 MG TABLET PO PRN (23:00)
[2022-11-09] MEDS ORDERED: REMEDY ESSENTIAL ZINC PASTE 113 GM TP PRN (23:00)
[2022-11-09] MEDS ORDERED: MAGNESIUM HYDROXIDE 30 ML LIQUID UDC PO PRN (23:00)
[2022-11-09] MEDS ORDERED: ZOLPIDEM 5 MG TABLET PO PRN (23:00)
[2022-11-09] MEDS: MORPHINE SULFATE 2 MG/1 ML DISP.SYRIN IV PRN (23:22)
[2022-11-09] MEDS: ONDANSETRON 4 MG/2 ML VIAL IV PRN (23:23)
[2022-11-10 04:08] VITALS: BP 108/80; TEMP 97.6; O2SAT 97
[2022-11-10] MEDS: PANTOPRAZOLE SODIUM 40 MG VIAL IV SCH (09:28)
[2022-11-10 12:00] VITALS: BP 101/74; TEMP 97.9; O2SAT 97
[2022-11-10 16:00] VITALS: BP 111/77; TEMP 97.9; O2SAT 96
[2022-11-10] MEDS: ONDANSETRON 4 MG/2 ML VIAL IV PRN (16:00)
[2022-11-10] MEDS: MORPHINE SULFATE 2 MG/1 ML DISP.SYRIN IV PRN (16:07)
[2022-11-10 20:00] VITALS: BP 114/79; TEMP 98.2; O2SAT 96
[2022-11-10] MEDS ORDERED: APIXABAN 5 MG TABLET PO SCH (21:00)
[2022-11-11 04:00] VITALS: BP 107/73; TEMP 97.6; O2SAT 95
[2022-11-11 07:01] LABS: BASOPHILS % (AUTO) 0.8 % (0.0-2.0); EOSINOPHILS % (AUTO) 0.7 % (0.0-7.0); HEMATOCRIT 33.9 % (36.7-47.1); HEMOGLOBIN 10.5 g/dL (12.5-16.3); LYMPHOCYTES % (AUTO) 20.7 % (20.5-51.5); MEAN CORPUSCULAR HEMOGLOBIN 24.1 uug (23.8-33.4); MEAN CORPUSCULAR HGB CONC 31 g/dL (32.5-36.3); MEAN CORPUSCULAR VOLUME 78.1 fL (73.0-96.2); MONOCYTES # (AUTO) 0.4 K/uL (0.1-1.30); MONOCYTES % (AUTO) 7.7 % (0.0-11.0); NEUTROPHILS # (AUTO) 3.3 K/uL (1.8-8.9); NEUTROPHILS % (AUTO) 70.1 % (38.5-71.5); PLATELET COUNT (AUTO) 498 K/uL (152-348); RED BLOOD CELL COUNT(AUTO) 4.34 MIL/uL (4.06-5.63); RED CELL DISTRIBUTION WIDTH 20.6 % (12.1-16.2); WHITE BLOOD COUNT (AUTO) 4.7 K/uL (3.6-10.2)
[2022-11-11 07:20] LABS: DIFFERENTIAL COMMENT 1
[2022-11-11 09:04] LABS: CREATININE 0.8 mg/dL (0.6-1.3); POTASSIUM 4.7 mmol/L (3.5-5.1)
[2022-11-11 09:06] LABS: TOTAL PROTEIN, SERUM 5.2 g/dL (6.4-8.2)
[2022-11-11 09:14] LABS: CALCIUM 7.6 mg/dL (8.5-10.1)
[2022-11-11] MEDS: PANTOPRAZOLE SODIUM 40 MG VIAL IV SCH (09:23)
[2022-11-11 09:35] LABS: BILIRUBIN,TOTAL 0.1 mg/dL (0.2-1.0)
[2022-11-11 09:37] LABS: ALBUMIN 1.4 g/dL (3.4-5.0)
[2022-11-11 09:38] LABS: MAGNESIUM 1.9 mg/dL (1.8-2.4); PHOSPHOROUS 4.4 mg/dL (2.5-4.9); THYROID STIMULATING HORMONE 9.306 mIU/mL (0.358-3.740); URIC ACID 5.7 mg/dL (3.5-7.2)
[2022-11-11 11:45] VITALS: BP 95/69; TEMP 98.2; O2SAT 99
[2022-11-11] MEDS ORDERED: ALBUMIN HUMAN 25% 100 ML IV ONE (15:45)
[2022-11-11 16:23] VITALS: BP 95/62; TEMP 97.2; O2SAT 95
[2022-11-12] MEDS ORDERED: APIXABAN 5 MG TABLET PO SCH (09:00)
== END 2022-11-11 21:00 | disposition home or self-care (01) | DRG 374 ==
LOC: ER 16:26 → MEDSURG3 21:31
PROVIDERS: ADMIT Nurse Practitioner Acute Care; ATTEND Nurse Practitioner Acute Care
PROC: 0W9G3ZZ Drainage of Peritoneal Cavity, Percutaneous Approach (ICD-10-PCS; principal; 2022-11-11)
DX: C16.9 Malignant neoplasm of stomach, unspecified (principal); E43 Unspecified severe protein-calorie malnutrition; C78.7 Secondary malignant neoplasm of liver and intrahepatic bile duct; R18.0 Malignant ascites; D68.69 Other thrombophilia; R64 Cachexia; Z68.1 Body mass index [BMI] 19.9 or less, adult; E87.1 Hypo-osmolality and hyponatremia; Z79.899 Other long term (current) drug therapy; D75.839 Thrombocytosis, unspecified; D63.8 Anemia in other chronic diseases classified elsewhere; E03.9 Hypothyroidism, unspecified; E88.09 Other disorders of plasma-protein metabolism, not elsewhere classified; Z86.718 Personal history of other venous thrombosis and embolism; Z79.60 Long term (current) use of unspecified immunomodulators and immunosuppressants; E87.70 Fluid overload, unspecified; Z79.01 Long term (current) use of anticoagulants
CPT/HCPCS: 36415; 71045; 83605; 83690; 83735; 84100; 84443; 84484; 84550; 85025; 85610; 87040; 93005; A4663; A6209; C9113; G0378; J0456; J0696; J2270; J2405; J7040; J7050; P9047

== ENCOUNTER 2022-11-21 17:43 | Inpatient (IN) | payer BC, OTHER ==
[~2022-11-21] VITALS: Ht 185.4 cm; Wt 65.0 kg
[~2022-11-21 17:43] MED LIST changes: -DICY20TA2 PO; -FERR325T28 PO; -HYDR-3972 PO
[2022-11-21 18:22] LABS: BASOPHILS % (AUTO) 0.6 % (0.0-2.0); EOSINOPHILS % (AUTO) 0.3 % (0.0-7.0); HEMATOCRIT 37.9 % (36.7-47.1); HEMOGLOBIN 12.3 g/dL (12.5-16.3); LYMPHOCYTES # (AUTO) 1.5 K/uL (0.8-4.8); LYMPHOCYTES % (AUTO) 25.2 % (20.5-51.5); MEAN CORPUSCULAR HEMOGLOBIN 25.4 uug (23.8-33.4); MEAN CORPUSCULAR HGB CONC 33 g/dL (32.5-36.3); MEAN CORPUSCULAR VOLUME 78.1 fL (73.0-96.2); MONOCYTES # (AUTO) 0.6 K/uL (0.1-1.30); MONOCYTES % (AUTO) 9.6 % (0.0-11.0); NEUTROPHILS # (AUTO) 3.9 K/uL (1.8-8.9); NEUTROPHILS % (AUTO) 64.3 % (38.5-71.5); PLATELET COUNT (AUTO) 623 K/uL (152-348); RED BLOOD CELL COUNT(AUTO) 4.86 MIL/uL (4.06-5.63); RED CELL DISTRIBUTION WIDTH 22.1 % (12.1-16.2); WHITE BLOOD COUNT (AUTO) 6.1 K/uL (3.6-10.2)
[2022-11-21 18:27] LABS: DIFFERENTIAL COMMENT 1
[2022-11-21 18:34] LABS: CALCIUM 7.6 mg/dL (8.5-10.1); POTASSIUM 4.7 mmol/L (3.5-5.1)
[2022-11-21 18:40] LABS: BILIRUBIN,DIRECT 0.1 mg/dL (0.0-0.2); BILIRUBIN,TOTAL 0.1 mg/dL (0.2-1.0)
[2022-11-21 18:45] LABS: ALBUMIN 1.5 g/dL (3.4-5.0)
[2022-11-21] MEDS ORDERED: REMEDY ESSENTIAL ZINC PASTE 113 GM TP PRN (21:45)
[2022-11-21] MEDS ORDERED: MAGNESIUM HYDROXIDE 30 ML LIQUID UDC PO PRN (21:45)
[2022-11-21] MEDS ORDERED: ONDANSETRON 4 MG/2 ML VIAL IV PRN (21:45)
[2022-11-21] MEDS ORDERED: ACETAMINOPHEN 325 MG TABLET PO PRN (21:45)
[2022-11-22 01:30] VITALS: BP 102/79; TEMP 97.4; O2SAT 97
[2022-11-22 06:00] VITALS: BP 102/74; TEMP 97.5; O2SAT 96
[2022-11-22 07:01] LABS: BASOPHILS % (AUTO) 0.7 % (0.0-2.0); EOSINOPHILS % (AUTO) 0.8 % (0.0-7.0); HEMATOCRIT 32.7 % (36.7-47.1); HEMOGLOBIN 10.5 g/dL (12.5-16.3); LYMPHOCYTES # (AUTO) 1.2 K/uL (0.8-4.8); LYMPHOCYTES % (AUTO) 24.9 % (20.5-51.5); MEAN CORPUSCULAR HEMOGLOBIN 25.3 uug (23.8-33.4); MEAN CORPUSCULAR HGB CONC 32 g/dL (32.5-36.3); MEAN CORPUSCULAR VOLUME 78.4 fL (73.0-96.2); MONOCYTES # (AUTO) 0.5 K/uL (0.1-1.30); MONOCYTES % (AUTO) 10.6 % (0.0-11.0); PLATELET COUNT (AUTO) 503 K/uL (152-348); RED BLOOD CELL COUNT(AUTO) 4.17 MIL/uL (4.06-5.63); RED CELL DISTRIBUTION WIDTH 21.4 % (12.1-16.2); WHITE BLOOD COUNT (AUTO) 4.8 K/uL (3.6-10.2)
[2022-11-22 07:08] LABS: CALCIUM 7.4 mg/dL (8.5-10.1); CREATININE 0.9 mg/dL (0.6-1.3); MAGNESIUM 1.7 mg/dL (1.8-2.4); PHOSPHOROUS 3.8 mg/dL (2.5-4.9); POTASSIUM 4.7 mmol/L (3.5-5.1)
[2022-11-22 07:15] LABS: DIFFERENTIAL COMMENT 1
[2022-11-22] MEDS ORDERED: OXYC5TAB3 PO (09:14)
[2022-11-22] MEDS ORDERED: OLAN5TAB70 PO (09:16)
[2022-11-22] MEDS ORDERED: MAGNESIUM OXIDE 400 MG TABLET PO ONE (10:30)
[2022-11-22 11:23] VITALS: BP 101/75; TEMP 97.9; O2SAT 96
[2022-11-22 16:25] VITALS: BP 109/79; TEMP 98.1; O2SAT 96
[2022-11-22] MEDS ORDERED: ALBUTEROL SULFATE 2.5 MG/3 ML NEBU NEB PRN (17:30)
[2022-11-22 20:00] VITALS: BP 97/66; TEMP 97.9; O2SAT 97
[2022-11-23 00:02] VITALS: TEMP 97.9
[2022-11-23 04:54] VITALS: BP 109/78; TEMP 97.5; O2SAT 95
[2022-11-23 07:09] LABS: CALCIUM 7.5 mg/dL (8.5-10.1); CREATININE 0.9 mg/dL (0.6-1.3); MAGNESIUM 1.8 mg/dL (1.8-2.4)
[2022-11-23 11:35] VITALS: BP 100/71; TEMP 97.9; O2SAT 97
[2022-11-23 16:11] VITALS: BP 106/71; TEMP 97.6; O2SAT 97
[2022-11-23] MEDS ORDERED: FURO-152 PO (18:14)
[2022-11-23] MEDS ORDERED: SPIR25TA PO (18:14)
== END 2022-11-23 18:00 | disposition home or self-care (01) | DRG 374 ==
LOC: ER 17:44 → MEDSURG3 19:00
PROVIDERS: ADMIT Nurse Practitioner Acute Care; ATTEND Nurse Practitioner Acute Care
PROC: 0W9G3ZZ Drainage of Peritoneal Cavity, Percutaneous Approach (ICD-10-PCS; principal; 2022-11-23)
DX: C16.9 Malignant neoplasm of stomach, unspecified (principal); E43 Unspecified severe protein-calorie malnutrition; C78.7 Secondary malignant neoplasm of liver and intrahepatic bile duct; R18.0 Malignant ascites; E87.1 Hypo-osmolality and hyponatremia; D68.69 Other thrombophilia; R18.8 Other ascites; E46 Unspecified protein-calorie malnutrition; Z68.1 Body mass index [BMI] 19.9 or less, adult; E88.09 Other disorders of plasma-protein metabolism, not elsewhere classified; D63.8 Anemia in other chronic diseases classified elsewhere; D75.839 Thrombocytosis, unspecified; Z79.01 Long term (current) use of anticoagulants; Z86.718 Personal history of other venous thrombosis and embolism; K72.90 Hepatic failure, unspecified without coma
CPT/HCPCS: 36415; 83690; 83735; 84100; 85025; 85730; A4663; G0378